=== PATIENT | female | born 1975 | race Caucasian/White ===

== ENCOUNTER 2018-10-21 23:35 | Emergency (ER) | payer SELFPAY ==
[~2018-10-21] VITALS: Ht 167.6 cm; Wt 86.4 kg
[~2018-10-21 23:35] MED LIST: DOCU-144 PO; ESOM40CA PO; FAMO-96 PO; HYDR25SU23 PR; HYDR30CR75 PR; PRENATAL VIT; SAME MEDS
[2018-10-21 23:41] VITALS: Ht 167.6 cm; Wt 86.4 kg
[2018-10-22] MEDS ORDERED: NAPROXEN 250 MG TAB PO SCH (01:00)
[2018-10-22] MEDS ORDERED: NAPROXEN 500 MG TAB PO ONE (01:00)
[2018-10-22 01:22] VITALS: BP 130/68; PULSE 53; RESP 18
== END 2018-10-22 01:22 | disposition home or self-care (01) ==
LOC: FTE 23:35
DX: K64.4 Residual hemorrhoidal skin tags (principal)
CPT/HCPCS: 99282

== ENCOUNTER 2018-10-28 23:39 | Emergency (ER) | payer SELFPAY ==
[~2018-10-28] VITALS: Ht 172.7 cm; Wt 85.7 kg
[2018-10-28 23:41] VITALS: Ht 172.7 cm; Wt 85.7 kg
[2018-10-29] MEDS ORDERED: ONDANSETRON 4 MG INJ IV STA (01:00)
[2018-10-29] MEDS ORDERED: KETOROLAC 30 MG INJ IV STA (01:00)
[2018-10-29 03:30] VITALS: BP 101/72; PULSE 56; RESP 14
== END 2018-10-29 03:45 | disposition home or self-care (01) ==
LOC: E/R 23:39
DX: K64.4 Residual hemorrhoidal skin tags (principal); R40.2142 Coma scale, eyes open, spontaneous, at arrival to emergency department; R40.2252 Coma scale, best verbal response, oriented, at arrival to emergency department; R40.2362 Coma scale, best motor response, obeys commands, at arrival to emergency department
CPT/HCPCS: 36415; 74176; 80053; 81003; 81025; 83690; 85025; 93005; 96374; 96375; 99285; J1885; J2405

== ENCOUNTER 2018-11-08 23:29 | Emergency (ER) | payer MEDICAID ==
[~2018-11-08] VITALS: Ht 154.9 cm; Wt 87.4 kg
[~2018-11-08 23:29] MED LIST changes: -DOCU-144 PO; -HYDR25SU23 PR; -HYDR30CR75 PR; +IBUP800T48 PO; -PRENATAL VIT; -SAME MEDS; +TRAM50TA2 PO
[2018-11-08 23:43] VITALS: Ht 154.9 cm; Wt 87.4 kg
[2018-11-09 01:59] VITALS: BP 136/66; PULSE 77; RESP 18
[2018-11-09] MEDS ORDERED: traMADol 50 MG TAB PO ONE (02:00)
== END 2018-11-09 01:59 | disposition home or self-care (01) ==
LOC: E/R 23:29
DX: J02.9 Acute pharyngitis, unspecified (principal)
CPT/HCPCS: Z7502; Z7610; 99283